=== PATIENT | male | born 1955 ===

== ENCOUNTER 2019-11-04 06:40 | Day surgery (SDC) | payer MEDICARE, BC ==
[~2019-11-04 06:40] MED LIST: Buffered Lidocaine 1% SYRIN* 1 ML/SYRINGE INTRADERM ONE; Dexamethasone IV* 4 MG/ML 1 ML (4 MG) IV SLOW PU ONE; Famotidine IV* 10 MG/ML 2 ML (20 mg) IV ONE; Lactated Ringers 1000 ML Bag* 1,000 ML IV SCH
[2019-11-04] MEDS ORDERED: BSS OPTH.SOL* BTL ONE (06:59)
[2019-11-04] MEDS ORDERED: Povidone Iodine 5% OPTH* 30 ML BTL ONE (07:01)
[2019-11-04] MEDS ORDERED: Phenylephrine OPHTH SOL 2.5%* 2 ML ONE (07:01)
[2019-11-04] MEDS ORDERED: Tetracaine 0.5% OPTH.SOL 4 ML* 1 DROP BTL ONE (07:01)
[2019-11-04] MEDS ORDERED: Neomycin/Polymy/Dex OPHTH.OIN* 3.5 GM ONE (07:01)
[2019-11-04] MEDS ORDERED: Dexamethasone IV* 4 MG/ML 1 ML (4 MG) ONE (07:06)
[2019-11-04] MEDS ORDERED: Famotidine IV* 10 MG/ML 2 ML (20 mg) ONE (07:06)
[2019-11-04] MEDS ORDERED: Midazolam* 1 MG/ML 2 ML VIAL (2 MG) ONE (07:35)
[2019-11-04] MEDS ORDERED: fentaNYL* 50 MCG/ML 2 ML VIAL (100 MCG VIAL) ONE (07:35)
[2019-11-04] MEDS ORDERED: Phenylephrine 40 MCG/ML SYRINGE ONE (07:51)
[2019-11-04] MEDS ORDERED: Ondansetron INJ* 2 MG/ML VIAL ONE (08:09)
[2019-11-04] MEDS ORDERED: Metoclopramide IV* 5 MG/ML 2 ML VIAL ONE (08:09)
[2019-11-04] MEDS ORDERED: Propofol* 10 MG/ML 20 ML BTL ONE (08:09)
[2019-11-04] MEDS ORDERED: fentaNYL* 50 MCG/ML 2 ML VIAL (100 MCG VIAL) IV PRN (08:11)
[2019-11-04] MEDS ORDERED: Naloxone* 0.4 MG/ML 1 ML VIAL IV PRN (08:11)
[2019-11-04] MEDS ORDERED: DiMENhydriNATE IV* 50 MG/ML VIAL IV PUSH PRN (08:11)
[2019-11-04 09:56] VITALS: BP 132/68
--- NOTE | 2019-11-04 21:14 | OP ---
DATE OF OPERATION: 11/04/19 [facility] DATE OF : 57 SURGEON: Thomas Benavides MD KNOCKUP WORKER: None. ANESTHESIA: General. 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 OPERATIVE PROCEDURE: Recess, right lateral rectus muscle 6 mm, resect right medial rectus muscle of 5 mm. COMPLICATIONS: None. ESTIMATED BLOOD LOSS: Minimal. DESCRIPTION OF PROCEDURE: The patient was brought to the operating room and received general anesthesia. A drop of tetracaine and a drop of phenylephrine placed in his right eye. The patient was prepped and draped in the usual sterile fashion for ophthalmic surgery and attention was directed to the right eye where a speculum was placed. Forced duction was performed and was found to be normal. The eye was grasped in the inferotemporal quadrant at the limbus and was moved superonasally. An inferotemporal fornix incision to the conjunctiva was created with the Jodie scissor. Tenon's capsule was violated. The lateral rectus muscle was isolated on a Josue muscle hook. The conjunctiva was reflected over the surface of the hook. The check ligament was opened. The muscle was cleaned with sharp and blunt dissection. A double- armed 6-0 Vicryl suture was woven into the muscle near its insertion and locked at either end. The muscle was disinserted from the globe. The original insertion site was grasped with locking forceps and a lock was made with a caliper 6.0 mm posterior to the original insertion site. The muscle was recessed at this point and tied securely. Sutures were trimmed and locking forceps were removed. Cauterization at the original insertion site was performed to achieve hemostasis. The conjunctiva was closed with interrupted 6- 0 gut sutures. At this point, the eye was grasped in the inferonasal quadrant with the limbus and pulled to superotemporal gaze. An inferonasal fornix incision to the conjunctiva was made with the Jodie scissor. Tenon's capsule was violated. The medial rectus was isolated on a Josue muscle hook. The conjunctiva was reflected over the hook and the check ligament was opened. The muscle was cleaned with sharp and blunt dissection near its insertion. The muscle was also cleaned along its medial surface to approximately 10 mm posterior from the insertion. A second Josue muscle hook was placed under the muscle and the small hooks were removed. Without undue stretching, a amaury was made on the muscle with a caliper measuring 5 mm from the insertion site. A double-armed 6 -0 Vicryl suture was woven to the muscle at this point and locked at either end. The Josue hook was removed and a Josue clamp was applied across the muscle near its insertion. The muscle was disinserted from the globe. The sutures were then woven through the original insertion site and then backed up through the muscle at the site of the sutures. The sutures were gently pulled and the muscle and eye were aligned such that the suture sites of the muscle was aligned over the insertion site. The sutures were tied securely. The distal muscle stump was cut away. Cautery was applied as needed to achieve hemostasis. The muscle was inspected and found to be in good position lying flat and secure at the original insertion site. The locking forceps removed. The conjunctiva was closed with interrupted 6-0 gut sutures. At the end of the case, the eyes appeared straight and there was no active bleeding. Topical tetracaine followed by Maxitrol ointment was placed on the surface of the eye after the speculum was removed. The patient was awakened uneventfully and sent to the recovery room in stable condition with postoperative instructions and followup appointment given. [id number]/[facility] #: [id number] EMERY
== END 2019-11-04 09:48 | disposition home or self-care (01) ==
LOC: EDSEX → OREAST 06:40
PROVIDERS: ATTEND Ophthalmology
DX: H50.111 Monocular exotropia, right eye (principal); M19.90 Unspecified osteoarthritis, unspecified site; I10 Essential (primary) hypertension; J44.9 Chronic obstructive pulmonary disease, unspecified; I25.10 Atherosclerotic heart disease of native coronary artery without angina pectoris; R01.1 Cardiac murmur, unspecified
CPT/HCPCS: A9270-GY; J1100; J2250; J2405; J2704; J2765; J3010